=== PATIENT | female | born 1980 | race Caucasian/White ===

== ENCOUNTER 2021-11-12 06:45 | Emergency (ER) | payer OTHER, MEDICARE, SELFPAY ==
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
[2021-11-12 07:27] VITALS: PULSE 90; RESP 16; TEMP 36.1; O2SAT 98; BMI 19.9
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
[2021-11-12] MEDS: Acetaminophen 325 MG TABLET 650 MG PO (09:05)
[2021-11-12] MEDS: Diphth,Pertus(ACell),Tet Adult 0.5 ML SYRINGE IM (09:06)
[2021-11-12] MEDS: Ketorolac Tromethamine 30 MG/ML VIAL 15 MG IM (09:06)
== END 2021-11-12 10:18 | disposition home or self-care (01) ==
PROVIDERS: Emergency Provider Student in an Organized Health Care Education/Training Program
DX: S01.01XA Laceration without foreign body of scalp, initial encounter (principal); S06.0X9A Concussion with loss of consciousness of unspecified duration, initial encounter; M79.601 Pain in right arm; R51.9 Headache, unspecified; Y04.2XXA Assault by strike against or bumped into by another person, initial encounter; Y93.9 Activity, unspecified; Y92.9 Unspecified place or not applicable; Y99.9 Unspecified external cause status
CPT/HCPCS: 12002; 70450; 73090; 90471; 90715; 96372; 99283; 99284; J1885

== ENCOUNTER 2021-12-06 15:13 | Emergency (ER) | payer OTHER, MEDICARE, SELFPAY ==
[2021-12-06 15:24] VITALS: BP 127/62; PULSE 82; RESP 18; TEMP 36.9; O2SAT 98; BMI 19.9
== END 2021-12-06 16:37 | disposition left against medical advice (07) ==
PROVIDERS: Emergency Provider Emergency Medicine
DX: Z48.02 Encounter for removal of sutures (principal)
CPT/HCPCS: 99281